=== PATIENT | male | born 1955 | race Caucasian/White ===

== ENCOUNTER 2019-07-14 20:38 | Emergency (ER) | payer MEDICAID, SELFPAY ==
[2019-07-14 20:39] VITALS: BP 150/71; PULSE 65; RESP 15; TEMP 37; O2SAT 97; BMI 29.3
--- NOTE | 2019-07-14 22:48 | ED.DCSUM_ITS ---
- ER Visit Summary Date of Service: 07/14/19 Chief Complaint: Atraumatic left calf pain and swelling. History of Present Illness: The patient is a 64 M no sniffing past medical history. Prior neck surgery years ago for C6-7 fusion. He is never had a blood clot. Within the last month patient had a 4000 mile car trip throughout [facility]. 3 days ago he developed atraumatic pain behind his left knee and calf. No fall or trauma. No redness or fever. No prior history of DVT or PE. No family history. He denies chest pain or shortness of breath. No hemoptysis. No pleuritic pain. Physical Examination: Older male no acute distress vital signs stable afebrile. Pulse ox 97% on room air no hypoxia. H EENT exam unremarkable. Neck nontender. Lungs clear to auscultation bilaterally. Heart regular rate and rhythm no murmur rate about 65. Abdomen soft nontender normal bowel sounds no peritoneal signs. Patient is moving all 4 extremities. Neurovascular intact. 5-5 manager [place] strength bilaterally. Equal symmetrical radial pulses. Dorsi plantarflexion intact 5-5 motor strength. Equal symmetrical. His left calf is mildly swollen and tender proximally. There is no significant redness or warmth. No signs of trauma. He has full flexion-extension of both hips, both knees, both ankles and feet. Normal touch sensation. Normal DP pulses equal and symmetrical. Normal cap refill. With no focal motor deficits. Test Results: Unable to obtain noninvasive study at this time. Discussed with patient and female at bedside. Emergency Department Course and Treatment: With Viancanox. Return tomorrow jonathan dowell to have noninvasive study left lower extremity done to be evaluated for a DVT. I do think he has a significant likelihood to have a DVT in his left leg. Treatment Plan: Follow-up tomorrow morning for noninvasive study. Return if he develops chest pain or shortness of breath. Disposition: Discharged to return in the morning. Impression: Atraumatic left lower leg pain and swelling Concern for left lower extremity DVT This note was generated with [employer] dictation software. It may contain incorrect words, spelling, and punctuation that were not noted in review of the chart prior to signing ED Disposition - Plan for ED Patient: Referrals: Sung Mendieta MD [Primary Care Provider] -
--- NOTE | 2019-07-14 22:51 | ED.DEP ---
ED Disposition - Plan for ED Patient: Disposition: Home or Assisted Living Referrals: Sung Mendieta MD [Primary Care Provider] - As Needed Additional Instructions: I am concerned you have a blood clot or deep venous thrombosis (DVT) in your left lower leg. I will order the ultrasound of your leg tonight. They will call you Monday. And have you come back to the hospital to go to the vascular lab to have the ultrasound performed to be evaluated for possible blood clot. If you have a blood clot they will send you back to the ER to be started on blood thinners. Elevate your leg. He will be given a single dose of a blood thinner called Lovenox tonight.
[2019-07-14] MEDS: Enoxaparin 100 MG/ML Syringe 90 MG SC (22:52)
[2019-07-14 23:13] VITALS: BP 132/76; PULSE 80; RESP 16; O2SAT 96
--- NOTE | 2019-07-14 23:14 | ED.RN ---
shot time observed for 15 minutes. no reaction noted by this rn. pt d/c.
== END 2019-07-14 23:14 | disposition home or self-care (01) ==
PROVIDERS: Emergency Provider Emergency Medicine
DX: M79.662 Pain in left lower leg (principal); M79.89 Other specified soft tissue disorders
CPT/HCPCS: 96372; 99282

== ENCOUNTER → 2019-07-15 09:18 | Outpatient (CLI) | payer MEDICAID, SELFPAY ==
[2019-07-14 20:39] VITALS: BMI 29.3
--- NOTE | 2019-07-15 09:21 | VDLE_ITS ---
Reason For Study: Swelling RIGHT LEFT CFV is compressible, spontaneous, phasic, GSV is normal. competent and demonstrates normal CFV is compressible, spontaneous, phasic, augmentation. competent, and demonstrates normal Procedure augmentation. Exam performed in department. FV prox is compressible with normal venous Pt seen in ED 07/14/2019. Sent pt back down to flow noted. ED per no PCP. Acute deep vein thrombosis is noted in the left FV mid-dist, PopV, T/P Trunk, PTV, PeroV, GastrocV, and SoleusV. Interpretation Summary Acute deep vein thrombosis is noted in the left femoral vein. Acute deep vein thrombosis is noted in the left popliteal vein. Acute deep vein thrombosis is noted in the left tibio-peroneal trunk. Acute deep vein thrombosis is noted in the left posterior tibial vein. Acute deep vein thrombosis is noted in the left peroneal vein. Acute deep vein thrombosis is noted in the left gastrocnemius vein. Acute deep vein thrombosis is noted in the left soleus vein. The left common femoral vein is patent, compressible, and competent. The left great saphenous vein appears patent and compressible segmentally. Ordering Physician: Shelton Richards Performed By: Maricel Barrera RVT
== END ==
PROVIDERS: Referring Provider Emergency Medicine; Visit Provider Emergency Medicine
DX: I82.412 Acute embolism and thrombosis of left femoral vein (principal); I82.432 Acute embolism and thrombosis of left popliteal vein; I82.452 Acute embolism and thrombosis of left peroneal vein; I82.442 Acute embolism and thrombosis of left tibial vein; I82.462 Acute embolism and thrombosis of left calf muscular vein
CPT/HCPCS: 93971

== ENCOUNTER 2019-07-15 09:48 | Emergency (ER) | payer MEDICAID, SELFPAY ==
[2019-07-14 20:39] VITALS: BMI 29.3
[2019-07-15 09:49] VITALS: BP 136/65; PULSE 40; RESP 18; TEMP 36.8; O2SAT 96; BMI 27.1
[2019-07-15 09:58] VITALS: RESP 16
--- NOTE | 2019-07-15 10:13 | ED.VIS.LOWEX ---
History of Present Illness Chief Complaint: Lower Extremity Injury Informant: Patient Occurred: Days - several Context: Gradual Onset Timing: Continuous Quality of Pain: - - tight Location: LLE Current Severity: Moderate Maximum Severity: Moderate Worsened by: weight-bearing Relieved by: rest Associated Symptoms: Negative for: Parasthesia, Weakness, Loss of Funtion Narrative: Patient seen here last night there was suspicion for DVT. The patient states he just returned home from driving a [address] throughout the [facility] and [facility] visiting many diners drive-in's and dives at restaurants. He is otherwise healthy. Denies any chest pain or shortness of breath. Had an outpatient DVT ultrasound this morning that was positive for DVT all the way up to the femoral vein. He was given Lovenox overnight, 1 mg/kg. Past Medical History - Allergies and Home Meds Allergies/Adverse Reactions: Allergies No Known Allergies Allergy (Verified 07/15/19 09:49) Primary Care Physician: Sung Mendieta MD [Primary Care Provider] - Past Medical History: None Smoking Status: Never smoker Review of Systems General: Denies: Malaise, Sweats Cardiovascular: Denies: Chest pain Respiratory: Denies: Dyspnea Gastrointestinal: Denies: Nausea, Vomiting Musculoskeletal: Reports: Swelling, Extremity Pain Physical Exam Vital Signs/Narrative: Vital Signs Temp Pulse Resp BP Pulse Ox 07/15/19 09:58 16 07/15/19 09:49 98.2 F 40 L 18 136/65 H 96 Inital Vital Signs reviewed: Yes - Extremity Exam Left Tib Fib: - - All compartments soft and nondistended. His calf is tender. Entire left lower extremity is mildly edematous. Good distal pulses. General: Well nourished, Well developed Head: Normocephalic, Atraumatic Skin: No rash, - - Left lower extremity is mildly erythematous, darkly. No cellulitis. No cyanosis. Neurological: Alert, Oriented x3, Cranial nerves II-XII grossly intact, Normal Strength, Normal Sensation, Normal Gait Psychological: Normal affect, Normal Mood Diagnostic/Tx/Re-eval - Medical Decision Making Patient was prescribed Eliquis. He has no PCP, he is referred to 1. He can start it this morning at some point, since he had Lovenox and currently is anticoagulated I did not hall to get him a dose prior to discharge from the ER. All questions answered, he has no symptoms of a pulmonary embolus right now and we discussed to avoid massaging his left lower extremity but otherwise to keep mobile. ED Disposition - Plan for ED Patient: Disposition: Home or Assisted Living Diagnosis: Deep vein thrombosis (DVT) of left lower extremity Instructions: Deep Vein Thrombosis Prescriptions: Apixaban [Eliquis] 5 mg PO BID 30 Days #70 tab Transmission Status: Pending to [facility] Referrals: Guillermo Hernandez MD [STAFF PHYSICIAN] - 1-2 Weeks
[2019-07-15 10:34] VITALS: RESP 16
== END 2019-07-15 10:35 | disposition home or self-care (01) ==
LOC: ED 10:24
PROVIDERS: Emergency Provider Emergency Medicine
DX: I82.412 Acute embolism and thrombosis of left femoral vein (principal); I82.432 Acute embolism and thrombosis of left popliteal vein; I82.452 Acute embolism and thrombosis of left peroneal vein; I82.442 Acute embolism and thrombosis of left tibial vein; I82.462 Acute embolism and thrombosis of left calf muscular vein
CPT/HCPCS: 93971; 99282

== ENCOUNTER 2019-09-17 11:39 | Emergency (ER) | payer MEDICAID, SELFPAY ==
[2019-09-17 11:40] VITALS: BP 146/92; PULSE 63; RESP 18; TEMP 36.2; O2SAT 96; BMI 27.6
--- NOTE | 2019-09-17 12:00 | CT_ITS ---
STUDY: CTA CHEST REASON FOR EXAM: Male, 64 years old. SOB WITH EXERTION RADIATION DOSAGE (If Supplied By Facility): CTDIvol = ( 9.68 ) mGy, DLP = ( 414.26 ) mGycm TECHNIQUE: The examination was performed with the intravenous administration of 100ML ISOVUE 370. Post-processing of the angiographic images was performed, with multiplanar reformation and 3D reconstruction. Individualized dose optimization techniques were used for this CT. COMPARISON: None. FINDINGS: Heterogeneous thyroid. Normal enhancement of the main pulmonary artery and right and left pulmonary arteries. Normal enhancement of the bilateral peripheral pulmonary arteries. There is no demonstrated pulmonary embolism. Normal thoracic aorta and visualized great vessels. There is no demonstrated aortic dissection. Normal heart and pericardium. Normal mediastinum. Normal hilar regions. Normal visualized trachea and bronchi. The lungs are well expanded. Normal pulmonary parenchyma. Normal pleura. Normal chest wall structures. Normal osseous structures. Right liver hypodensity most likely represents a cyst. CT/CTA Chest W/WO Contrast IMPRESSION: No demonstrated pulmonary embolism or arterial dissection. Heterogeneous thyroid. Consider follow-up thyroid ultrasound. Electronically Signed: Chao Melissa, at 13:18 EDT Tel , Service support ,
--- NOTE | 2019-09-17 12:00 | VDLE_ITS ---
Reason For Study: swelling Procedure LEFT Exam performed portable in ED. GSV is normal. The exam was abbreviated due to the COVID 19 CFV is compressible, spontaneous, phasic, protocol. competent, and demonstrates normal The exam was diagnostic. augmentation. A preliminary report was called and/or faxed FV prox is compressible with normal venous to Dr. Jarrell. flow noted. FV mid-dist, PopV, T/P Trunk, PTV, PeroV, and SoleusV are dilated and noncompressible. Gastroc V is now compressible. Interpretation Summary Acute deep vein thrombosis is noted in the left mid- and distal femoral vein. Acute deep vein thrombosis is noted in the left popliteal vein. Acute deep vein thrombosis is noted in the left tibio-peroneal trunk. Acute deep vein thrombosis is noted in the left posterior tibial vein. Acute deep vein thrombosis is noted in the left peroneal vein. Acute deep vein thrombosis is noted in the left soleus vein. The left common femoral vein, proximal femoral vein, and gastrocnemius vein are patent and compressible. The left great saphenous vein is patent and compressible. There has been slight improvement since a prior study on 07/15/2019. Ordering Physician: Arnel Jarrell Performed By: Kulwinder Cruz RVT
--- NOTE | 2019-09-17 12:01 | RAD_ITS ---
STUDY: X-RAY - PELVIS AND LEFT HIP REASON FOR EXAM: Male, 64 years old. Blood clot 2 months ago in leg has not resolved -- pain, edema TECHNIQUE: 3 views of the pelvis and hip. COMPARISON: None. FINDINGS: There is a non-specific bowel gas pattern. Normal visualized soft tissue structures. Contrast is seen within the distal ureters and bladder. Normal bilateral iliac wings, sacroiliac joints and visualized sacrum. Normal bilateral superior and inferior pubic rami. Normal pubic symphysis. Normal bilateral ischial tuberosities. Marked bilateral hip arthrosis is noted. Hip joints are normally aligned. Intact proximal femur bilaterally. RAD/HIP, UNI W/ Pelvis 2-3 Views IMPRESSION: Significant bilateral degenerative disease of the hips. No acute fracture or dislocation. Electronically Signed: Chao Melissa, at 13:25 EDT Tel , Service support ,
--- NOTE | 2019-09-17 12:01 | ED.DCSUM_ITS ---
- ER Visit Summary Date of Service: 09/17/19 Chief Complaint: Left lower extremity pain History of Present Illness: The patient is a 64 M who presents with left lower extremity pain and swelling that has been constant for the past few weeks. Patient states he was diagnosed a couple months ago with a DVT in his left lower extremity from his mid thigh to his ankle. Patient states he is on Eliquis. Patient states the pain and swelling has gotten worse. Patient also admits to pain in his left hip. Patient states his pain is worse with walking and better with elevation. Patient does admit to some slight shortness of breath with walking. Patient denies any fevers or chills. Patient denies any chest pain. Patient denies any nausea or vomiting. Physical Examination: Vital signs are stable. Patient is afebrile. Patient is in no acute distress. Oral mucosa is pink and moist. Neck is supple. Trachea is midline. There is no JVD. Heart was regular rate and rhythm. Lungs are clear and equal bilaterally. Abdomen is soft. Bowel sounds are normal. There is no tenderness. Musculoskeletal exam reveals tenderness and edema of the left thigh and left lower leg. There is also some mild tenderness in his left hip. There is some pain with internal and external rotation. There is no deformity noted. Pedal pulses are equal bilaterally. There are no sensory deficits noted. Cranial nerves II through XII are intact. Strength is 5/5 bilaterally. Test Results: Venous duplex of the left lower extremity was obtained. There is slight improvement from prior study. CTA of the chest was obtained. There is no pulmonary embolism or dissection. X-rays of the left hip were obtained. There are degenerative changes but no acute fracture. These were interpreted by the radiologist and reviewed by myself. CBC, comprehensive metabolic profile, PT with INR, and PTT were obtained were all within normal limits. Emergency Department Course and Treatment: Patient was advised of his results. Patient is feeling better on reevaluation. Patient was instructed to continue his Eliquis as prescribed. Patient was instructed to keep his leg elevated. Patient was instructed to take ibuprofen as needed for his hip pain. Patient was instructed to follow-up with his primary care physician in 5 to 7 days. Patient understood and was agreeable with the plan. All questions were answered. Disposition: Discharge home Impression: DVT left lower extremity This note was generated with [employer] dictation software. It may contain incorrect words, spelling, and punctuation that were not noted in review of the chart prior to signing ED Disposition - Plan for ED Patient: Disposition: Home or Assisted Living Diagnosis: Deep vein thrombosis (DVT) of left lower extremity Instructions: ED DVT Referrals: Care Physician,No Primary [NON-STAFF] - 5-7 Days
[2019-09-17 12:19] LABS: Absolute Lymphocyte Count 1.67 X10^3/uL (0.83-4.51); Basophil# 0.06 X10^3/uL; Basophil% 0.8 % (0-1); Eosinophil# 0.15 X10^3/uL; Eosinophils% 1.9 % (0-5); Hematocrit 45.3 % (40-54); Hemoglobin 15.4 g/dL (13.0-16.5); Lymphocyte # 1.67 X10^3/ul (4.0); Lymphocyte % 21.3 % (19-41); Mean Corpuscular Hgb 33.5 pg (27.0-32.0); Mean Corpuscular Volume 98.5 fL (80-94); Monocyte# 0.88 X10^3/uL; Monocyte% 11.2 % (0-10); NRBC Flagged by Analyzer 0 % (0-5); Neutrophil # 5.04 X10^3/uL (2.7-7.7); Neutrophil % 64.3 % (47-70); Platelet Count 267 K/mm3 (150-450); RBC Distribution Width CV 12.2 % (11.6-14.6); RBC Distribution Width SD 44.2 fl (35.1-43.9); White Blood Count 7.8 K/mm3 (4.4-11.0)
[2019-09-17] MEDS: 0.9% Normal Saline 1,000 ML 1000 ML IV (12:31)
[2019-09-17 12:34] LABS: ALB/GLOB Ratio 0.9 RATIO (0.9-2.4); AST(SGOT) 27 U/L (15-37); Alanine Aminotransfer ALT/SGPT 52 U/L (16-61); Albumin, Serum 3.5 g/dL (3.2-5.0); Alkaline Phosphatase 101 U/L (45-117); Anion Gap 6 (5-15); BUN 23 mg/dL (7-18); BUN/Creat Ratio 22.1 RATIO (10-20); Calcium,Total 9.5 mg/dL (8.5-10.1); Chloride 105 mmol/L (98-107); Creatinine, Serum 1.04 mg/dL (0.70-1.30); EST Glomerular Filtration Rate 77 mL/min (>60); Est Glom Filt Rate - Afr Amer 93 mL/min (>60); Estimated Creatinine Clearance 80.83 ml/min; Globulin 3.9 g/dL (2.2-4.2); Glucose 99 mg/dL (74-106); Potassium 4.3 mmol/L (3.5-5.1); Protein, Total 7.4 g/dL (6.4-8.2); Sodium Level 141 mmol/L (136-145)
[2019-09-17 12:52] LABS: International Normalized Ratio 1.1; Prothrombin Time (Protime)PT. 13.8 SECONDS (11.7-14.9)
[2019-09-17 13:56] VITALS: BP 142/91; PULSE 62; RESP 19; O2SAT 96
[2019-09-17 14:26] VITALS: BP 137/86; PULSE 61; RESP 21; O2SAT 95
== END 2019-09-17 14:32 | disposition home or self-care (01) ==
PROVIDERS: Emergency Provider Emergency Medicine
DX: I82.442 Acute embolism and thrombosis of left tibial vein (principal); M25.552 Pain in left hip; R06.02 Shortness of breath; M54.9 Dorsalgia, unspecified; Z79.01 Long term (current) use of anticoagulants; Z86.718 Personal history of other venous thrombosis and embolism
CPT/HCPCS: 71275; 73502; 80053; 85025; 85610; 85730; 93971; 96360; 99285; J7030; Q9967; A4216

== ENCOUNTER → 2020-03-24 08:19 | Outpatient (CLI) | payer MEDICAID, SELFPAY ==
--- NOTE | 2020-03-24 08:36 | EKG12_ITS ---
Test Reason : PREOP Blood Pressure : / mmHG Vent. Rate : 059 BPM Atrial Rate : 059 BPM P-R Int : 164 ms QRS Dur : 104 ms QT Int : 392 ms P-R-T Axes : 041 025 -13 degrees QTc Int : 388 ms Sinus bradycardia Otherwise normal ECG No previous ECGs available Confirmed by BELLA CORRAL, SB ([id number]), video effects editor LARRY PAK ([id number]) on 03/27/2020 11:29:09 AM Referred By: Neftali Radford Confirmed By:SB BLANCO MD
--- NOTE | 2020-03-24 08:39 | RAD_ITS ---
EXAM DESCRIPTION: PA and lateral chest CLINICAL HISTORY: 65 years Male, pre op surgery next Monday, no chest complaints pre op surgery next Monday, no chest complaints COMPARISON: Previous CTA scan the chest obtained on 09/17/2019 FINDINGS: The thorax is intact. The heart and mediastinum appear to be within normal limits. The lungs appear to be well areated without evidence of pneumonic consolidation or pleural effusion. RAD/Chest PA and Lateral IMPRESSION: Normal PA and lateral chest. Electronically Signed: Alberto Jameson, at 9:22 EST Tel , Service support ,
[2020-03-24 08:45] LABS: Absolute Lymphocyte Count 1.93 X10^3/uL (0.83-4.51); Absolute Neutrophil Count 5.8 X10^3/uL (2.0-7.7); Basophil# 0.09 X10^3/uL; Eosinophil# 0.15 X10^3/uL; Eosinophils% 1.7 % (0-5); Hemoglobin 15.7 g/dL (13.0-16.5); Lymphocyte # 1.93 X10^3/ul (4.0); Lymphocyte % 21.4 % (19-41); Mean Corp Hgb Conc 34.1 g/dL (32-36); Mean Corpuscular Hgb 34.2 pg (27.0-32.0); Mean Corpuscular Volume 100.2 fL (80-94); Mean Platelet Vol. 10.3 fl (6.2-12.0); Monocyte# 0.91 X10^3/uL; Monocyte% 10.1 % (0-10); NRBC Flagged by Analyzer 0 % (0-5); Neutrophil # 5.81 X10^3/uL (2.7-7.7); Neutrophil % 64.6 % (47-70); Platelet Count 259 K/mm3 (150-450); RBC Distribution Width SD 44.3 fl (35.1-43.9); Red Blood Count 4.59 M/mm3 (4.6-6.2)
[2020-03-24 09:26] LABS: Anion Gap 3 (5-15); BUN 24 mg/dL (7-18); BUN/Creat Ratio 21.1 RATIO (10-20); Calcium,Total 9.6 mg/dL (8.5-10.1); Chloride 109 mmol/L (98-107); Creatinine, Serum 1.14 mg/dL (0.70-1.30); EST Glomerular Filtration Rate 69 mL/min (>60); Est Glom Filt Rate - Afr Amer 83 mL/min (>60); Glucose 104 mg/dL (74-106); Potassium 4.4 mmol/L (3.5-5.1); Sodium Level 142 mmol/L (136-145)
== END ==
PROVIDERS: Referring Provider Physician Assistant Surgical; Visit Provider Physician Assistant Surgical
DX: Z01.818 Encounter for other preprocedural examination (principal)
CPT/HCPCS: 36415; 71046; 80048; 85025; 93005

== ENCOUNTER → 2020-05-28 09:45 | Outpatient (CLI) | payer MEDICAID, SELFPAY ==
--- NOTE | 2020-05-28 09:48 | US_ITS ---
STUDY: ABDOMINAL ULTRASOUND - RIGHT UPPER QUADRANT REASON FOR VISIT: Male, 65 years old elevated LFTS TECHNIQUE: Ultrasound evaluation of the right upper quadrant was performed with real-time and static carranza-scale imaging. TECHNICAL QUALITY: Adequate. COMPARISON: None. FINDINGS: Liver: The liver measures 18.1 cm. There is increased echogenicity consistent with fatty infiltration. Focal fatty infiltration in the region of the gallbladder fossa. The bile ducts are within normal limits. There is hepatic color flow. The direction of portal flow is hepatopetal. There is no demonstrated mass lesion. Gallbladder: Normal distended gallbladder. The gallbladder wall measures 2.5 mm. There is a negative sonographic Keys''s sign. There is no pericholecystic fluid. There are no gallstones. Common Bile Duct (C.B.D.): The common bile duct measures 2.5 mm. Pancreas: Normal size of the head, body of the pancreas. The tail portion is obscured due to overlying bowel gas. There is normal echogenicity of the pancreas. There is no demonstrated pancreatic mass or cyst. Right Kidney: Normal size of the right kidney. The right kidney measures 11.1 cm x 4.9 cm x 5.1 cm. Normal renal cortex. The right cortex measures 1.4 cm. There is a 1.5 cm x 1.4 cm x 1.1 cm cyst. There is no right hydronephrosis. US/Abdomen Limited IMPRESSION: Fatty infiltration of the liver. Small right renal cyst. Electronically Signed: Sundeep Zuñiga MD at 10:50 EST , Service support ,
== END ==
DX: R94.5 Abnormal results of liver function studies (principal)
CPT/HCPCS: 76705

== ENCOUNTER 2021-06-04 09:40 | Outpatient (CLI) | payer MEDICAID, SELFPAY ==
--- NOTE | 2021-06-04 09:45 | US_ITS ---
STUDY: ABDOMINAL ULTRASOUND - RIGHT UPPER QUADRANT REASON FOR VISIT: Male, 66 years old . Small liver abnormality. TECHNIQUE: Ultrasound evaluation of the right upper quadrant was performed with real-time and static carranza-scale imaging. TECHNICAL QUALITY: Adequate. COMPARISON: Comparison is made with prior ultrasound the abdomen dated 05/28/2020. FINDINGS: Liver: The liver is enlarged and measures 19.9 cm. There is increased echogenicity consistent with fatty infiltration with focal fatty sparing in the region of the gallbladder fossa.. The bile ducts are within normal limits. There is hepatic color flow. The direction of portal flow is hepatopetal. There is a 1.1 cm x 0.8 cm x 0.8 cm cyst in the dome of the right lobe of the liver. Gallbladder: Normal distended gallbladder. The gallbladder wall measures 2 mm. There is a negative sonographic Keys''s sign. There is no pericholecystic fluid. There are no gallstones. Common Bile Duct (C.B.D.): The common bile duct measures 2 mm. Pancreas: Normal size of the head, body of the pancreas. The tail portion is obscured due to overlying bowel gas. There is normal echogenicity of the pancreas. There is no demonstrated pancreatic mass or cyst. Right Kidney: Normal size of the right kidney. The right kidney measures 9.87 x 5.7 cm x 4.9 cm. Normal renal cortex. The right cortex measures 1.0 cm. There is no demonstrated renal mass or cyst. There is mild hydronephrosis of the right kidney. US/Liver IMPRESSION: Mild hepatomegaly and diffuse fatty infiltration of the liver with focal fatty sparing in the region of the gallbladder fossa. 1.1 cm x 0.8 cm x 0.8 cm cyst in the dome of the right lobe of the liver. Electronically Signed: Sundeep Zuñiga MD at 10:57 EST ,
== END 2021-06-04 23:59 | disposition short-term general hospital (02) ==
LOC: US 09:42
DX: K76.9 Liver disease, unspecified (principal)
CPT/HCPCS: 76705

== ENCOUNTER 2021-06-14 06:06 | Outpatient (CLI) | payer MEDICAID, SELFPAY ==
--- NOTE | 2021-06-14 12:54 | STRESSREP_ITS ---
Stress Test Report Date: 06-14-2021 Procedure: Exercise tolerance test/imaging study Indications: Chest pain Consent: Per the patient Procedure: The patient exercised on a Juvenal protocol for 6 minutes and 30 seconds completing Stage II and 30 seconds of Stage III achieving a peak heart rate of 133 bpm (85% predicted maximal heart rate) with a peak blood pressure 178/80 mmHg and a peak MET capacity of 8 METs. The baseline ECG demonstrated sinus bradycardia. The peak exercise ECG demonstrated somatic/motion artifact with no obvious ECG changes. There was an isolated PVC during recovery. The functional capacity was considered average. There was no complaint of chest discomfort during exercise or recovery. The examination was discontinued secondary to dyspnea. Impression: 1. Technically adequate (percent predicted maximal heart rate greater than 85%) exercise tolerance test 2. Peak exercise ECG with somatic/motion artifact with no obvious ECG changes 3. There was an isolated PVC during recovery 4. Nuclear images pending Myocardial perfusion imaging study: Technique: The patient was injected with 14.7 mCi of technetium 99m Cardiolite and subsequently rest SPECT Cardiolite nuclear imaging was obtained in the horizontal long, vertical long, and short axis views. The patient exercised on a Juvenal protocol for 6 minutes and 30 seconds completing Stage II and 30 seconds of Stage III achieving a peak heart rate of 133 bpm (85% predicted maximal heart rate) with a peak blood pressure 178/80 mmHg and a peak MET capacity of 8 METs. The patient was injected with 44.6 mCi of technetium 99m Cardiolite and subsequently stress SPECT Cardiolite nuclear imaging was obtained in the horizontal long, vertical long, and short axis views. A gated Cardiolite study at peak stress was obtained. Interpretation: Rest and stress SPECT Cardiolite nuclear imaging status post realignment, normalization, and attenuation correction, demonstrates the appearance of body motion during image acquisition and at rest the appearance of diminished tracer uptake in portions of the distal anterior lateral segments which status post stress appears to improved/normalized. There is end systolic thickening and brightening. The gated Cardiolite study demonstrates myocardial thickening and inward wall motion. The reported LVEF is 65%. Impression: 1. Rest and stress SPECT Cardiolite nuclear imaging demonstrate demonstrate the appearance of body motion during image acquisition and myocardial perfusion changes appearing compatible with shifting soft tissue attenuation/artifact with no myocardial perfusion changes considered diagnostic for associated stress- induced myocardial ischemia. 2. The gated Cardiolite study reports an LVEF of 65%. This note was generated with [employer] software. It may contain incorrect words, spelling, and punctuation that were not noted in checking the note before signing.
== END 2021-06-14 23:59 | disposition home or self-care (01) ==
LOC: CVS 06:07
DX: R07.9 Chest pain, unspecified (principal)
CPT/HCPCS: 78452; 93017; A9500; A4216

== ENCOUNTER 2022-03-30 08:08 | Day surgery (SDC) | payer MEDICAID, SELFPAY ==
--- NOTE | 2022-03-28 15:56 | EKG12_ITS ---
Test Reason : PRE OP Blood Pressure : / mmHG Vent. Rate : 067 BPM Atrial Rate : 067 BPM P-R Int : 144 ms QRS Dur : 110 ms QT Int : 380 ms P-R-T Axes : 047 051 044 degrees QTc Int : 401 ms Normal sinus rhythm with occasional PVC Confirmed by LAKE CORRAL, ORLANDO ([id number]), international editorial producer LARRY PAK ([id number]) on 03/29/2022 9:13:56 AM Referred By: Ava Deshpande Confirmed By:ORLANDO BETHEA MD
[2022-03-30] VITALS (11 sets, daily range): BP systolic 106–135; BP diastolic 65–81; PULSE 50–61; RESP 16–18; TEMP 36.2–36.8; O2SAT 93–97; BMI 28.3
[2022-03-30] MEDS: Lactated Ringers 1,000 ML 15 ML IV ×2 (08:53→10:35)
--- NOTE | 2022-03-30 08:57 | PCM.HP.STD ---
HPI - General General Date of Admission: 03/30/22 HPI Narrative MAINE WADE, is a 67 M who presents for umbilical hernia repair with mesh. 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 Patient states he still has issues with discomfort when it pops out and also has some nausea associated with it. Patient has been able to reduce the hernia. Office visit 11/24/21 [facility] Surgical H&P: Yes HPI: MAINE WADE, is a 66 M who presents to the office today for an umbilical hernia. Patient states for approximately 4-5 years he has had an umbilical hernia. He notes approximately 1 week ago, he was helping his daughter move and was lifting heavy items. He stated during that time the hernia popped out and became painful associated with nausea. He noted he was able to reduce the umbilical hernia back into place. He states no change in bowel habits, urinary issues. He notes the area is tender. He was diagnosed with blood clots in May 2019. He was placed on Eliquis during that time. He no longer is on any blood thinners. Patient's previous surgeries include right and left hip replacement and cervical neck infusion. Patient states he had had an infection of the right hip incision which was treated with silver. Patient denies cardiac or pulmonary history. 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 He denies smoking, illicit drugs.? PFSH Medical History Acid reflux Alcohol use Arthritis DVT (deep venous thrombosis) Fatty liver Hemorrhoids History of stress test Leg cramps Migraine headache Non-smoker Home Medications apple cider vinegar 600 mg capsule 1,200 mg PO DAILY 03/23/22 [History Last Taken Unknown] ascorbic acid (vitamin C) 250 mg chewable tablet (Vitamin C) 500 mg PO DAILY 03/23/22 [History Last Taken Unknown] cholecalciferol (vitamin D3) 125 mcg (5,000 unit) tablet (Vitamin D3) 125 mcg PO DAILY 03/23/22 [History Last Taken Unknown] glucosamine 750 hc-kjotjf-gcc 1 625 mg-D3 1,000 lnhv-P-lza-Bosw tablet (Yuicfkfuqun-Yyhhbheehaj-PHP with vit D) 1 tab PO DAILY 03/23/22 [History Last Taken Unknown] magnesium 200 mg tablet 400 mg PO DAILY 03/23/22 [History Last Taken Unknown] multivitamin 1 cap PO DAILY 03/23/22 [History Last Taken Unknown] omega 2-zla-dsd-fish oil 1,200 mg (144 mg-216 mg) capsule (Fish Oil) 1 cap PO DAILY 03/23/22 [History Last Taken Unknown] omeprazole 40 mg capsule,delayed release 40 mg PO DAILY 03/23/22 [History Last Taken Unknown] phytosterol 300 mg-pantethine 100 mg capsule (CholestOff Complete) 1 cap PO DAILY 03/23/22 [History Last Taken Unknown] red yeast rice 600 mg tablet 1,200 mg PO DAILY 03/23/22 [History Last Taken Unknown] turmeric 400 mg capsule 400 mg PO DAILY 03/23/22 [History Last Taken Unknown] ubiquinol 100 mg-pyrroloquinoline quinone (coenzyme PQQ) 10 mg capsule 1 cap PO DAILY 03/23/22 [History Last Taken Unknown] Allergy/AdvReac Type Severity Reaction Status Date / Time No Known Allergies Allergy Verified 03/23/22 11:21 Family History (Updated 11/24/21 @ 13:35 by Deneen Montano) Mother Heart disease Surgical History (Updated 03/23/22 @ 11:39 by Pamela Franz) History of esophagogastroduodenoscopy (EGD) Hx of LASIK Hx of total hip arthroplasty S/P hip replacement S/P spinal fusion Social History (Updated 11/24/21 @ 13:35 by Deneen Montano) Smoking Status: Never smoker alcohol intake: current alcohol intake frequency: holidays/special occasions only substance use type: does not use Vital Signs Vital Signs Vital Signs: 03/30/22 08:47 03/30/22 08:47 Temperature 97.6 F L Temperature Source Temporal Pulse Rate 56 L Respiratory Rate 16 Respiratory Pattern Normal Blood Pressure 115/81 H Blood Pressure Mean 92 Blood Pressure Source Monitor Blood Pressure Position Sitting Pulse Ox 97 Oxygen Delivery Method Room Air Weight Weight: 202 lb 13.204 oz Body Mass Index (BMI) 28.3 Physical Exam Const alert, oriented x3 and no apparent distress HEENT normocephalic and head/scalp atraumatic Resp normal respiratory effort Cardio regular rate GI soft to palpation; Negative for non-distended GI Narrative: Umbilical hernia reducible, tender with reducing hernia otherwise nontender Palpation: Negative for guarding Extremity no clubbing, cyanosis or edema Neuro CN's II-XII intact bilaterally Psych mental status grossly normal Assessment & Plan Assessment/Plan (1) Umbilical hernia without mention of obstruction or gangrene: PLAN: Plan Plan to do an umbilical herniorrhaphy with mesh. Reviewed the procedure with the patient including the risks, including but not limited to infection, bleeding, injury to the small bowel, and recurrence. All questions were answered. Patient and his had no further question this time. Ava Deshpande M.D. Pager: [phone] [facility] [address] [place] [address], [address] [place] [address] Office: [phone]
[2022-03-30] MEDS: Cefazolin 2 GM in 0.9% Normal Saline 100 ML IV (09:20)
[2022-03-30] MEDS: Bupivacaine 0.25% 30 ML Vial (09:39)
--- NOTE | 2022-03-30 10:04 | OP.PCM_ITS ---
Report of Operation Date of Procedure: 03/30/22 Pre-Operative Diagnosis: Umbilical hernia Post-Operative Diagnosis: Same Surgery/Procedure Performed:: Umbilical hernia with Mesh Surgeon: Ava Deshpande automobile spring repairer: Ree Mata Type of Anesthesia: General/Supplemental Anesthesiologist: Rafy Doyle Special Medications: Ancef 2 g IV x1 Specimen's removed: None Estimated Blood Loss (mL): < 10 cc Description of Procedure: Patient was brought into the room placed supine on the operating table. Correct patient, procedure, site, positioning, special, was verified prior to procedure. General anesthesia was induced. The abdomen was prepped draped in usual sterile fashion. A curvilinear incision was made below the umbilicus with a 15 blade scalpel. This was deepened with electrocautery. A hemostat was used to go around the stalk of the umbilicus and Metzenbaum scissors was used to carefully divide the hernia sac from the skin of the umbilicus. The fascia around the hernia defect was cleared and the hernia defect measured 1.2 x 1.2 cm. A small Ventralex ST hernia patch was used and secured laterally at the tails with 0 Prolene mattress sutures. 0 Prolene suture was placed to close the fascia in a vyufmq-ud-chdix including the mesh inferiorly and superiorly. The wound was irrigated with saline. Hemostasis was assured. The skin of the umbilicus was secured to the fascia using 3-0 Vicryl suture interrupted. The incision was closed with 3-0 Vicryl subdermal interrupted sutures and the skin was closed with interrupted 4- 0 Monocryl sutures. Steri-Strips and Tegaderm and OpSite were placed over the incision once sterile cotton balls were placed in the umbilicus. Patient was extubated. Patient tolerated procedure well and was taken to the postanesthesia care unit in stable condition. Grafts/Implants Used: small Ventralex ST hernia patch --lot [id number] ref [id number] Complications none
--- NOTE | 2022-03-30 10:07 | DCINST_ITS ---
Discharge Instructions Diet Discharge Diet: Light diet - advance as tolerated Activity May shower in (days): 5 (Keep umbilical dressing clean dry and intact for 5 days. Okay to tape off with a Ziploc bag to shower. Or lower shower and upper sponge bath.) Lifting Restrictions: no lifting >20 lbs x 2 wks, no strenuous exercise for 4 wks Additional Activity Instructions:: - Dressing / Incision Call your doctor if your incision/area has: Continuous Slow Oozing, Sudden Increased Bleeding, Increased Pain/ Swelling, Increased Redness, Foul Smelling Discharge and Swelling at the incision site Call your doctor if you observe: Fever of 101 or Higher Remove Dressing in: 5 days (After 5 days okay to remove surgical dressing. Place cotton ball or rolled up gauze in bellybutton and retape daily for 2 more days.) Cleanse incision/area with: Do not get Incision Wet (for 5 days) Additional Dressing/Incision Instructions:: Steri-Strips will fall off in 7 to 10 days, if they do not fall off okay to remove after 10 days. Follow Up Care Please Follow Up With: Ava Deshpande MD When: Call the office for a follow-up appointment 2 weeks; after 5 PM and on the weekends call [phone] with any concerns. Test Results: Test results from this visit will be discussed in further detail at your follow- up appointment, if applicable. Discharge Plan Admission Attending Provider: Ava Deshpande Primary Care Provider: Almita Hartmann Discharge Orders/Prescriptions Prescriptions: New oxycodone-acetaminophen 5-325 mg tablet 1 tab PO Q6H PRN (Reason: pain) 3 Days Qty: 7 0RF Continued omeprazole 40 mg Capsule,Delayed Release(Dr/Ec) 40 mg PO DAILY ascorbic acid (vitamin C) [Vitamin C] 250 mg Tablet,Chewable 500 mg PO DAILY apple cider vinegar 600 mg Capsule 1,200 mg PO DAILY multivitamin Capsule 1 cap PO DAILY magnesium 200 mg Tablet 400 mg PO DAILY cholecalciferol (vitamin D3) [Vitamin D3] 125 mcg (5,000 unit) Tablet 125 mcg PO DAILY omega 3-pdz-mml-fish oil [Fish Oil] 1,200 (144-216) mg Capsule 1 cap PO DAILY red yeast rice 600 mg Tablet 1,200 mg PO DAILY Rx Instructions: give with meal/snack Etkgvhck-Lnvukq-SEZ with vit D 750-625-1,000 mg-mg-unit Tablet 1 tab PO DAILY CholestOff Complete 300-100 mg Capsule 1 cap PO DAILY ubiquinol-pyrroloquin quinone 100-10 mg Capsule 1 cap PO DAILY Held turmeric 400 mg Capsule 400 mg PO DAILY Hold Instructions: Resume on 04/01/22. Referrals / Follow Up: Almita Hartmann PA [Primary Care Provider] - Disposition Disposition (needs filled in before D/C Order can be placed): Home, Self Care
[2022-03-30] MEDS: Acetaminophen 325 MG Tablet PO (12:34)
[2022-03-30] MEDS: oxyCODONE 5 MG Tablet PO (12:34)
== END 2022-03-30 15:17 | disposition home or self-care (01) ==
LOC: SDC 08:11 → AC 08:12
PROVIDERS: Referring Provider Surgery; Visit Provider Surgery
PROC: (CPT 49585; principal; 2022-03-30 09:45)
DX: K42.9 Umbilical hernia without obstruction or gangrene (principal); K21.9 Gastro-esophageal reflux disease without esophagitis; Z98.1 Arthrodesis status; Z86.718 Personal history of other venous thrombosis and embolism
CPT/HCPCS: 49585; 00750; 93005; J7120; C1781; J2405